=== PATIENT | male | born 1955 | race Caucasian/White ===

== ENCOUNTER 2019-01-11 04:15 | Inpatient (IN) | payer MEDICAID, OTHER ==
[2019-01-11] MEDS ORDERED: traZODone 50 MG TAB PO PRN (07:00)
[2019-01-11] MEDS ORDERED: MOM 30ML SUSPENSION UDC PO PRN (07:00)
[2019-01-11] MEDS ORDERED: MAALOX 30 ML SUSP *UDC PO PRN (07:00)
[2019-01-11] MEDS ORDERED: LORazepam 2 MG TAB PO PRN (07:15)
[2019-01-11 09:00] VITALS: BP 157/80
[2019-01-11] MEDS: NICOTINE 21MG/24HR 1 EA TRANSDERMAL TD SCH (09:00)
[2019-01-11] MEDS: ACETAMINOPHEN TAB 650MG DOSE (2X325MG) PO PRN (09:41)
[2019-01-11] MEDS: THIAMINE 100 MG TAB PO SCH ×2 (10:35→22:14)
[2019-01-11] MEDS: PALIPERIDONE 3 MG ER TAB (INVEGA) PO SCH ×2 (10:35→22:15)
[2019-01-11] MEDS: FOLIC ACID 1 MG TAB PO SCH (10:35)
[2019-01-11] MEDS: MULTIVITAMINS/MINERALS THERAP 1 TAB PO SCH (10:35)
[2019-01-11 11:51] VITALS: BP 142/84
--- NOTE | 2019-01-11 16:56 | HPEPDOC ---
General Date of Admission January 11, 2019 at 06:55 Chief Complaint The patient is a 63-year-old male admitted with a reason for visit of Unspecified Psychotic Disorder. History of Present Illness Patient is a 63-year-old male, past medical history significant for hypertension, schizophrenia, nicotine dependence, transferred from another hospital where he had presented via ambulance with a complaint of opening the letter from [employer] that had anthrax. Patient reported sudden nausea at time of opening the letter. He reports he developed sudden lightheadedness and a feeling of toxicity for which he had called 911. He also complained that the letter caused sudden memory loss. Home Medications No Active Prescriptions or Reported Meds Allergies Coded Allergies: Opioids - Morphine Analogues (Verified Adverse Reaction, Intermediate, LIGHTHEADED, 01/11/19) Past Medical History Medical History Hypertension Hyperlipidemia Arthritis Nicotine dependence Schizophrenia Surgical History Colonoscopy Cardiac Catheterization Family History Significant Family History: No pertinent family hx Social History * Smoker: current smoker, less than 1 pack/day Alcohol: occationally Drugs: denies A-FIB/CHADSVASC A-FIB History Current/History of A-Fib/PAF?: No Current Oral Anticoagulant The: No Review of Systems Other systems Review of systems not completed due to patient's mental status Physical Examination Other physical findings General: NAD. Skin: Warm, dry, intact. Cardiovascular: Regular rate and rhythm, no MRG, no jugular venous distention, no edema. Respiratory:CTAB, no accessory muscle use noted. Abdomen: Bowel sounds +, no tenderness, no distention Musculoskeletal: No joint deformities, Neurologic: CN 2-12 grossly intact, alert and oriented 3 Psychiatric: Flat affect Vital Signs Vital Signs Date Time Temp Pulse Resp B/P (MAP) Pulse Ox O2 Delivery O2 Flow Rate FiO2 01/11/19 11:51 87 142/84 01/11/19 09:00 98.8 16 01/11/19 08:00 97 Room Air Assessment/Plan Hypertension -Start lisinopril 10 mg daily -Blood pressure monitoring per unit protocol. -target systolic blood pressure systolic less than 140 -DVT prophylaxis -Patient is frequently ambulatory Nicotine dependence -Management by primary team Acute paranoia with psychosis -Management by primary team Plan / VTE VTE Prophylaxis Ordered?: No VTE Exclusion Pharmacological: At Low Risk for VTE DUYEN BOSS January 11, 2019 16:56
[2019-01-11] MEDS: LISINOPRIL 10 MG TAB PO SCH (17:11)
[2019-01-11 18:00] VITALS: BP 133/72
--- NOTE | 2019-01-11 18:32 | MHHPEPDOC ---
General Date Of Admission: January 11, 2019 Legal Status: 9.39 Chief Complaint Referred by [facility] for increasing psychosis. History of Present Illness HISTORY OF THE PRESENT ILLNESS: Patient is a 63 -year-old , male, who, as per ED report: "Reason for Referral Pt sent by [facility] ED for MHE, pt with apparent hx of Schizophrenia, has been exhibiting paranoid delusions earlier tonight. Chief Complaint Pt appears anxious, s/w guarded, is A&0x3, transferred from [facility] ED for MHE. PT admittedly called 911 himself last evening, admits he was drinking yesterday as well. Pt repoprts he called 911 after opening a letter at home and feeling like it had a "toxic effect" on him, pt insists there was something wrong with the letter and cause him to feel dizzy and weak, reports the leter was some kind of "medical advertisement". Pt., though guarded, admits to hx of Schizophrenia and has prior admissions in [place], but last admission was in "late 80's or early 90's", pt admits to poor memory recently, also admits to non-compliance with outpt psych tx or medications since he moved to [facility] in 2009, currently resides with his 2 sisters. Pt reports compliance with his PCP and medications, also had colonospcopy recently. Pt denies SI/HI, currently denies any AH/VH, denies drug use, admits to drinking "a few times a month", admits he had "about 10 beers yesterday". Pt remains anxious and guarded with poor eye contact, pressured speech. Per [place] documentation, ED Physician there spoke with pt.'s sister for corroborative info, she examined aforementioned letter that pt had incident with, letter appeared ordinary to her(Medicare notice?) and acknowledged that pt did indeed have prior psych hx and agreed that pt appeared to be decompensating. Pt continues to obsess about the letter, feels he was somehow physically affected by letter, appears paranoid, possible tactile/olfactory/gustatory hallucinations" Psychiatric Review of Systems Depression (2 or more weeks): insomnia/hypersomnia (insomnia "for a long time althought it has gotten better in the last few nights"), decreased energy, difficulty concentrating, psychomotor changes Rosemary (4 or more days of): denies Psychosis: denies PTSD: denies Anxiety: denies Anxiety/ 6 months or more of: restlessness, keyed up (about 3 weeks ago), easily fatigued, difficulty concentrating, muscle tension, sleep disturbance Past Psychiatric History Previous Psychiatric Diagnosis: He has a diagnosis but he can't remember what it is 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 Father ahd he says he of "natural causes" Psychiatric Disorders: No Addiction: No Suicide Attemps/Completions: No Addiction History nicotine (half pack/day), alcohol (2-3x/month) Social History Childhood: "It was OK", grew up with both parents, he had 2 sisters, they live in [place]. School was OK Abuse/Trauma: Denies Current Living Situation: He lives with his 2 sisters in [facility] Education: Employment: unemployed Social Support: His 2 sisters Legal: A long time ago, a misdemeanor, driving w/o a license Marital: Single, no children. Mental Status Examination General Appearance: unkempt, disheveled, ds/not appear stated age (looks older), hospital scubs/clothing Build: average Demeanor: mistrustful, guarded Eye Contact: intense Activity: slowed, anxious Behavior: resistant Speech: clear, slow, low in volume Mood: angry, irritable Affect: constricted, inappropriate, anxious, hostile Thought Process: other (patient is not very cooperative, he doesn't talk much, he is guarded) Thought Content (Delusions): denies SI, HI, AVH, paranoia (patient seems to be paranoid), delusions Thought Content (Other): guarded, internal-stimuli (patient seems to be responding to internal stimuli, he was seen making faces as if he would be annoyed at someone else in the room.) Thought Content (Aggressive): none reported Perception (Hallucinations): other (He denies having hallucinations but he seems to be responding to internal stimuli) Perception (Other): none reported Cognition (Impairment of): none reported Cognition(Intelligence Est.): average Oriented: Awake, Alert, Oriented times three Insight: poor Judgment: Poor Psychosis: Psychotic Perceptions Diagnoses 1. Unspecified psychotic disorder, r/o paranoid schizophrenia 2. alcohol use disorder Assessment The patient is extremely guarded, he looks at me with the corner of his eye, he seems angry and irritable. He has a h/o schizophrenia according to documentation sent by [facility] to the ED. At [facility] they obtained information from his sisters who reported that he has been non compliant with appointments or medications. He seems to be responding to internal stimuli Problem List Problems: (1) Schizophrenia Status: Chronic Response to Treatment: Uncontrolled Discussed With: Patient Problem Specific Plan: Monitor Clinically Initial Treatment Plan 1. Patient was admitted on a [9.39] status. 2. Complete history was obtained. 3. With patients permission, family will be contacted and database will be expa nded. 4. Patients medication regimen will be reviewed and changed accordingly. 5. Patient will be provided with protected environment. 6. Patient will be treated with individual, group, and milieu therapies. 7. Patient will receive supportive psych-education. 8. Discharge planning will commence immediately. 9. Outpatient follow-up treatment will be strongly recommended. 10. The initial treatment plan will focus initially on: * Psychosis * Risk for suicide. * Risk for harming other people * Substance abuse. ESTIMATED LENGTH OF STAY: 5-7 DAYS. TIME SPENT COUNSELING AND COORDINATING INITIAL CARE: 60 minutes. Vital Signs Vital Signs Date Time Temp Pulse Resp B/P (MAP) Pulse Ox O2 Delivery O2 Flow Rate FiO2 01/11/19 17:11 139/76 01/11/19 11:51 87 01/11/19 09:00 98.8 16 01/11/19 08:00 97 Room Air Medications No Active Prescriptions or Reported Meds Allergies Coded Allergies: Opioids - Morphine Analogues (Verified Adverse Reaction, Intermediate, LIGHTHEADED, 01/11/19) DUONG HANSON MD January 11, 2019 18:16
[2019-01-11] MEDS: BENZTROPINE 0.5 MG TAB PO SCH (22:15)
[2019-01-11 22:17] VITALS: BP 124/67
[2019-01-12 06:40] VITALS: BP 122/55
[2019-01-12 08:00] VITALS: BP 128/68
[2019-01-12] MEDS: MULTIVITAMINS/MINERALS THERAP 1 TAB PO SCH (08:30)
[2019-01-12] MEDS: NICOTINE 21MG/24HR 1 EA TRANSDERMAL TD SCH (08:30)
[2019-01-12] MEDS: BENZTROPINE 0.5 MG TAB PO SCH ×2 (08:31→20:13)
[2019-01-12] MEDS: PALIPERIDONE 3 MG ER TAB (INVEGA) PO SCH ×2 (08:31→20:13)
[2019-01-12] MEDS: LISINOPRIL 10 MG TAB PO SCH (08:31)
[2019-01-12] MEDS: THIAMINE 100 MG TAB PO SCH ×2 (08:31→20:13)
[2019-01-12] MEDS: FOLIC ACID 1 MG TAB PO SCH (08:31)
[2019-01-12 17:25] VITALS: BP 162/91
[2019-01-12 18:00] VITALS: BP 140/77
--- NOTE | 2019-01-12 19:25 | MHIPNPDOC ---
[facility] Progress Note Progress Note DATE OF SERVICE: 01/12/19 HISTORY: Patient is a 63 -year-old , male, who, as per ED report: Pt sent by [facility] ED for MHE, pt with apparent hx of Schizophrenia, has been exhibiting paranoid delusions earlier tonight. Chief Complaint Pt appears anxious, s/w guarded, is A&0x3, transferred from [facility] ED for MHE. PT admittedly called 911 himself last evening, admits he was drinking yesterday as well. Pt repoprts he called 911 after opening a letter at home and feeling like it had a "toxic effect" on him, pt insists there was something wrong with the letter and cause him to feel dizzy and weak, reports the leter was some kind of "medical advertisement". Pt., though guarded, admits to hx of Schizophrenia and has prior admissions in [place], but last admission was in "late 80's or early 90's", pt admits to poor memory recently, also admits to non-compliance with outpt psych tx or medications since he moved to [facility] in 2009, currently resides with his 2 sisters. Pt reports compliance with his PCP and medications, also had colonospcopy recently. Pt denies SI/HI, currently denies any AH/VH, denies drug use, admits to drinking "a few times a month", admits he had "about 10 beers yesterday". Pt remains anxious and guarded with poor eye contact, pressured speech. Per [place] documentation, ED Physician there spoke with pt.'s sister for corroborative info, she examined aforementioned letter that pt had incident with, letter appeared ordinary to her(Medicare notice?) and acknowledged that pt did indeed have prior psych hx and agreed that pt appeared to be decompensating. Pt continues to obsess about the letter, feels he was somehow physically affected by letter, appears paranoid, possible tactile/olfactory/gustatory hallucinations" VITAL SIGNS: See below. NEW TEST RESULTS: see below CURRENT MEDICATIONS: See below. MENTAL STATUS EXAMINATION: General Appearance: unkempt, disheveled, ds/not appear stated age (looks older), hospital scubs/clothing Build: average Demeanor: mistrustful, guarded Eye Contact: intense, looks at me with the corner of his eye Activity: slowed, anxious, guarded, with his arms crossed in front of his chest Behavior: seems paranoid, suspicious Speech: clear, slow, low in volume Mood: less irritable than yesterday Affect: constricted, inappropriate, anxious, hostile Thought Process: linear but illogical, not coherent Thought Content (Delusions): denies SI, HI, AVH, paranoia (patient seems to be paranoid), delusions ( he firmly believes an envelope he received was sent with anthrax in it, he thinks someone is out to get him) Thought Content (Other): guarded, internal-stimuli Thought Content (Aggressive): none reported Perception (Hallucinations): other (He denies having hallucinations but he seems to be responding to internal stimuli) Perception (Other): none reported Cognition (Impairment of): none reported Cognition(Intelligence Est.): average Oriented: Awake, Alert, Oriented times three Insight: poor Judgment: Poor Psychosis: Psychotic Perceptions Diagnoses 1. Unspecified psychotic disorder, r/o paranoid schizophrenia 2. alcohol use disorder ASSESSMENT: The patient is convinced that he received a letter and he believes the envelope had anthrax in it. He says he feels a little bit better with Invega and he thinks he is going to keep taking it but he is not going to quit dri nking. Discussed the drinking problem as a big obstacle for his stabilization, because if he is drunk, he won't take his medications or go to his appointments but at this point his mind is not clear enough to understand how important is to keep sober and continue his treatment. MANAGEMENT PLAN: Will continue with current treatment plan TIME SPENT: 20 minutes. Vital Signs Vital Signs Date Time Temp Pulse Resp B/P (MAP) Pulse Ox O2 Delivery O2 Flow Rate FiO2 01/12/19 17:25 77 162/91 01/12/19 06:40 97.4 16 01/11/19 08:00 97 Room Air Current Medications Current Medications Acetaminophen (Tylenol Tab) 650 mg Q6HP PRN PO HEADACHE or DISCOMFORT Last a dministered on 01/11/19at 09:41; Start 01/11/19 at 07:00 Al Hydrox/Mg Hydrox/Simethicone (Mylanta) 30 ml Q4HP PRN PO HEARTBURN/IND IGESTION; Start 01/11/19 at 07:00 Benztropine Mesylate (Cogentin) 0.5 mg BID PO Last administered on 01/12/19 08:31; Start 01/11/19 at 21:00 Folic Acid (Folic Acid) 1 mg DAILY PO Last administered on 01/12/19 08:31; Start 01/11/19 at 09:00 Home Med (Med Rec Complete!) ASDIRECTED XX ; Start 01/11/19 at 08:45; Stop 01/11/19 at 08:45; Status DC Lisinopril (Prinivil) 10 mg DAILY PO Last administered on 01/12/19 08:31; Start 01/11/19 at 09:00 Lorazepam (Ativan) 2 mg ASDIRECTED PRN PO SEE PROTOCOL; Start 01/11/19 at 07:15 Magnesium Hydroxide (Milk Of Magnesia) 30 ml DAILYPRN PRN PO CONSTIPATION; Start 01/11/19 at 07:00 Multivitamins (Theragram-M) 1 tab DAILY PO Last administered on 01/12/19 08:30; Start 01/11/19 at 09:00 Nicotine (Nicoderm Cq 21mg) 1 patch DAILY TD Last administered on 01/12/19 08:30; Start 01/11/19 at 09:00 Paliperidone (Invega) 3 mg BID PO Last administered on 01/12/19 08:31; Start 01/11/19 at 09:00 Thiamine HCl (Thiamine HCl) 100 mg BID PO Last administered on 01/12/19 08:31; Start 01/11/19 at 09:00; Stop 01/14/19 at 08:59 Trazodone HCl (Desyrel) 50 mg QHSP PRN PO INSOMNIA; Start 01/11/19 at 07:00 Allergies Coded Allergies: Opioids - Morphine Analogues (Verified Adverse Reaction, Intermediate, LIGHTHEADED, 01/11/19) DUONG HANSON MD January 12, 2019 19:13
[2019-01-12 21:00] VITALS: BP 136/70
[2019-01-13 06:38] VITALS: BP 106/62
[2019-01-13] MEDS: FOLIC ACID 1 MG TAB PO SCH (08:11)
[2019-01-13] MEDS: NICOTINE 21MG/24HR 1 EA TRANSDERMAL TD SCH (08:11)
[2019-01-13] MEDS: THIAMINE 100 MG TAB PO SCH ×2 (08:11→20:01)
[2019-01-13] MEDS: PALIPERIDONE 3 MG ER TAB (INVEGA) PO SCH ×2 (08:11→20:01)
[2019-01-13] MEDS: MULTIVITAMINS/MINERALS THERAP 1 TAB PO SCH (08:11)
[2019-01-13] MEDS: BENZTROPINE 0.5 MG TAB PO SCH ×2 (08:11→20:01)
[2019-01-13] MEDS: LISINOPRIL 10 MG TAB PO SCH (08:11)
--- NOTE | 2019-01-13 17:57 | REP ---
CT brain without contrast: History: Altered mental status. Comparison study December 03, [address] findings: Preliminary digital distillation operator radiograph is unremarkable. Bone window settings demonstrate an intact bony calvarium. There is mucosal thickening moderate in degree affecting the ethmoid sinuses bilaterally. Mild mucosal changes are seen in the sphenoid sinuses. No intraorbital abnormality is seen. There is vascular calcification in the carotid arteries bilaterally. There is no evidence of infarct or intracranial hemorrhage. No mass or midline shift is seen. No extra-axial fluid collection is observed. Impression: Vascular calcification. Minimal generalized volume loss. No acute intracranial abnormality. There is evidence of bilateral ethmoid mucosal sinusitis. Electronically Signed by Francisco George MD 01/14/2019 10:28 A
[2019-01-13 18:20] VITALS: BP 119/69
--- NOTE | 2019-01-13 20:31 | MHIPNPDOC ---
[facility] Progress Note Progress Note DATE OF SERVICE: 01/13/19 HISTORY: Patient is a 63 -year-old , male, who, as per ED report: Pt sent by [facility] ED for MHE, pt with apparent hx of Schizophrenia, has been exhibiting paranoid delusions earlier tonight. Chief Complaint Pt appears anxious, s/w guarded, is A&0x3, transferred from [facility] ED for MHE. PT admittedly called 911 himself last evening, admits he was drinking yesterday as well. Pt repoprts he called 911 after opening a letter at home and feeling like it had a "toxic effect" on him, pt insists there was something wrong with the letter and cause him to feel dizzy and weak, reports the leter was some kind of "medical advertisement". Pt., though guarded, admits to hx of Schizophrenia and has prior admissions in [place], but last admission was in "late 80's or early 90's", pt admits to poor memory recently, also admits to non-compliance with outpt psych tx or medications [facility], currently resides with his 2 sisters. Pt reports compliance with his PCP and medications, also had colonospcopy recently. Pt denies SI/HI, currently denies any AH/VH, denies drug use, admits to drinking "a few times a month", admits he had "about 10 beers yesterday". Pt remains anxious and guarded with poor eye contact, pressured speech. Per [place] documentation, ED Physician there spoke with pt.'s sister for corroborative info, she examined aforementioned letter that pt had incident with, letter appeared ordinary to her(Medicare notice?) and acknowledged that pt did indeed have prior psych hx and agreed that pt appeared to be decompensating. Pt continues to obsess about the letter, feels he was somehow physically affected by letter, appears paranoid, possible tactile/olfactory/gustatory hallucinations" VITAL SIGNS: See below. NEW TEST RESULTS: see below CURRENT MEDICATIONS: See below. MENTAL STATUS EXAMINATION: General Appearance: good hygiene and grooming, , ds/not appear stated age (looks older), hospital scubs/clothing Build: average Demeanor: less guarded today Eye Contact: avoidant at times Activity: slowed, calm Behavior: less paranoid Speech: clear, slow, low in volume Mood: less irritable Affect: constricted, anxious Thought Process: linear Thought Content (Delusions): denies SI, HI, AVH, he still believes that he received an envelope that contained anthrax. He is still paranoid but to a lesser extent. He denies AV hallucinations and doesn't seem to be responding to internal stimuli Thought Content (Other): delusional ( envelope, according to him contained anthrax.) Thought Content (Aggressive): none reported Perception (Hallucinations): none reported Perception (Other): none reported Cognition (Impairment of): none reported Cognition(Intelligence Est.): average Oriented: Awake, Alert, Oriented times three Insight: poor Judgment: Poor Psychosis: Psychotic Perceptions Diagnoses 1. Unspecified psychotic disorder, r/o paranoid schizophrenia 2. alcohol use disorder ASSESSMENT: The patient is looking better and he says that he feels better. Says he is sleeping well, his appetite is good, feels calmer and still believes that he received a letter that was poisoned with anthrax. He says that he had a CT scan done this time when he came to the ED but there's no CT from this admission. There's an MRI from 2014. This information writer ordered a CT scan today and it shows this results: "Vascular calcification. Minimal generalized volume loss. No acute intracranial abnormality. There is evidence of bilateral ethmoid mucosal sinusitis." The patient shows good response to medication, he has not developed adverse reaction or side effects. MANAGEMENT PLAN: Will continue with current treatment plan TIME SPENT: 20 minutes. Vital Signs Vital Signs Date Time Temp Pulse Resp B/P (MAP) Pulse Ox O2 Delivery O2 Flow Rate FiO2 01/13/19 18:20 98.2 77 16 119/69 (86) 01/11/19 08:00 97 Room Air Current Medications Current Medications Acetaminophen (Tylenol Tab) 650 mg Q6HP PRN PO HEADACHE or DISCOMFORT Last administered on 01/11/19at 09:41; Start 01/11/19 at 07:00 Al Hydrox/Mg Hydrox/Simethicone (Mylanta) 30 ml Q4HP PRN PO HEARTBURN/INDIGESTION; Start 01/11/19 at 07:00 Benztropine Mesylate (Cogentin) 0.5 mg BID PO Last administered on 01/13/19at 20:01; Start 01/11/19 at 21:00 Folic Acid (Folic Acid) 1 mg DAILY PO Last administered on 01/13/19at 08:11; Start 01/11/19 at 09:00 Home Med (Med Rec Complete!) ASDIRECTED XX ; Start 01/11/19 at 08:45; Stop 01/11/19 at 08:45; Status DC Lisinopril (Prinivil) 10 mg DAILY PO Last administered on 01/13/19at 08:11; Start 01/11/19 at 09:00 Lorazepam (Ativan) 2 mg ASDIRECTED PRN PO SEE PROTOCOL; Start 01/11/19 at 07:15 Magnesium Hydroxide (Milk Of Magnesia) 30 ml DAILYPRN PRN PO CONSTIPATION; Start 01/11/19 at 07:00 Multivitamins (Theragram-M) 1 tab DAILY PO Last administered on 01/13/19at 08:11; Start 01/11/19 at 09:00 Nicotine (Nicoderm Cq 21mg) 1 patch DAILY TD Last administered on 01/13/19at 0 8:11; Start 01/11/19 at 09:00 Paliperidone (Invega) 3 mg BID PO Last administered on 01/13/19at 20:01; Start 01/11/19 at 09:00 Thiamine HCl (Thiamine HCl) 100 mg BID PO Last administered on 01/13/19 20:01; Start 01/11/19 at 09:00; Stop 01/14/19 at 08:59 Trazodone HCl (Desyrel) 50 mg QHSP PRN PO INSOMNIA; Start 01/11/19 at 07:00 Allergies Coded Allergies: Opioids - Morphine Analogues (Verified Adverse Reaction, Intermediate, LIGHTHEADED, 01/11/19) DUONG HANSON MD January 13, 2019 20:31
[2019-01-14 07:00] VITALS: BP 119/72
[2019-01-14] MEDS: NICOTINE 21MG/24HR 1 EA TRANSDERMAL TD SCH (08:25)
[2019-01-14] MEDS: BENZTROPINE 0.5 MG TAB PO SCH ×2 (08:25→20:12)
[2019-01-14] MEDS: FOLIC ACID 1 MG TAB PO SCH (08:25)
[2019-01-14] MEDS: MULTIVITAMINS/MINERALS THERAP 1 TAB PO SCH (08:25)
[2019-01-14] MEDS: LISINOPRIL 10 MG TAB PO SCH (08:25)
[2019-01-14] MEDS: PALIPERIDONE 3 MG ER TAB (INVEGA) PO SCH ×2 (08:25→20:12)
[2019-01-14 09:00] VITALS: BP 119/72
[2019-01-14 18:00] VITALS: BP 112/58
[2019-01-14 18:30] VITALS: BP 112/58
--- NOTE | 2019-01-14 20:54 | MHIPNPDOC ---
[facility] Progress Note Progress Note DATE OF SERVICE: 01/14/19 HISTORY: Patient is a 63 -year-old , male, who, as per ED report: Pt sent by [facility] ED for MHE, pt with apparent hx of Schizophrenia, has been exhibiting paranoid delusions earlier tonight. Chief Complaint Pt appears anxious, s/w guarded, is A&0x3, transferred from [facility] ED for MHE. PT admittedly called 911 himself last evening, admits he was drinking yesterday as well. Pt repoprts he called 911 after opening a letter at home and feeling like it had a "toxic effect" on him, pt insists there was something wrong with the letter and cause him to feel dizzy and weak, reports the leter was some kind of "medical advertisement". Pt., though guarded, admits to hx of Schizophrenia and has prior admissions in [place], but last admission was in "late 80's or early 90's", pt admits to poor memory recently, also admits to non-compliance with outpt psych tx or medications since he moved to [facility] in 2009, currently resides with his 2 sisters. Pt reports compliance with his PCP and medications, also had colonospcopy recently. Pt denies SI/HI, currently denies any AH/VH, denies drug use, admits to drinking "a few times a month", admits he had "about 10 beers yesterday". Pt remains anxious and guarded with poor eye contact, pressured speech. Per [place] documentation, ED Physician there spoke with pt.'s sister for corroborative info, she examined aforementioned letter that pt had incident with, letter appeared ordinary to her(Medicare notice?) and acknowledged that pt did indeed have prior psych hx and agreed that pt appeared to be decompensating. Pt continues to obsess about the letter, feels he was somehow physically affected by letter, appears paranoid, possible tactile/olfactory/gustatory hallucinations" VITAL SIGNS: See below. NEW TEST RESULTS: see below CURRENT MEDICATIONS: See below. MENTAL STATUS EXAMINATION: General Appearance: good hygiene and grooming, , ds/not appear stated age (looks older), hospital scubs/clothing Build: average Demeanor: less guarded today Eye Contact: avoidant at times Activity: slowed, calm Behavior: less paranoid Speech: clear, slow, low in volume Mood: less irritable Affect: constricted, anxious Thought Process: linear Thought Content (Delusions): denies SI, HI, AVH, he doesn't seem to be responding to internal stimuli Thought Content (Other): his delusions about receiving an envelope contaminated with anthrax are fading away Thought Content (Aggressive): none reported Perception (Hallucinations): none reported Perception (Other): none reported Cognition (Impairment of): none reported Cognition(Intelligence Est.): average Oriented: Awake, Alert, Oriented times three Insight: poor Judgment: Poor Psychosis: Psychotic Perceptions Diagnoses 1. Unspecified psychotic disorder, r/o paranoid schizophrenia 2. alcohol use disorder ASSESSMENT: The patient is improving. Today he says that he is begining to realize that the envelope didn't contain any anthrax because this is not the first time he has that kind of thoughts but the difference is that in the past he had learned how to block those thoughs and not pay attention to them. He says he is having a good response to medications and denies side effects. He says that he doesn't think liquor played a rol in his decompensation. MANAGEMENT PLAN: Will continue with current treatment plan TIME SPENT: 20 minutes. Vital Signs Vital Signs Date Time Temp Pulse Resp B/P (MAP) Pulse Ox O2 Delivery O2 Flow Rate FiO2 01/14/19 18:30 83 112/58 01/14/19 18:00 98.7 14 01/11/19 08:00 97 Room Air Current Medications Current Medications Acetaminophen (Tylenol Tab) 650 mg Q6HP PRN PO HEADACHE or DISCOMFORT Last administered on 01/11/19at 09:41; Start 01/11/19 at 07:00 Al Hydrox/Mg Hydrox/Simethicone (Mylanta) 30 ml Q4HP PRN PO HEARTBURN/INDIGESTION; Start 01/11/19 at 07:00 Benztropine Mesylate (Cogentin) 0.5 mg BID PO Last administered on 01/14/19at 20:12; Start 01/11/19 at 21:00 Folic Acid (Folic Acid) 1 mg DAILY PO Last administered on 01/14/19at 08:25; Start 01/11/19 at 09:00 Home Med (Med Rec Complete!) ASDIRECTED XX ; Start 01/11/19 at 08:45; Stop 01/11/19 at 08:45; Status DC Lisinopril (Prinivil) 10 mg DAILY PO Last administered on 01/14/19 08:25; Start 01/11/19 at 09:00 Lorazepam (Ativan) 2 mg ASDIRECTED PRN PO SEE PROTOCOL; Start 01/11/19 at 07:15 Magnesium Hydroxide (Milk Of Magnesia) 30 ml DAILYPRN PRN PO CONSTIPATION; Start 01/11/19 at 07:00 Multivitamins (Theragram-M) 1 tab DAILY PO Last administered on 01/14/19at 08:25; Start 01/11/19 at 09:00 Nicotine (Nicoderm Cq 21mg) 1 patch DAILY TD Last administered on 01/14/19 08:25; Start 01/11/19 at 09:00 Paliperidone (Invega) 3 mg BID PO Last administered on 01/14/19at 20:12; Start 01/11/19 at 09:00 Thiamine HCl (Thiamine HCl) 100 mg BID PO Last administered on 01/13/19at 20:01; Start 01/11/19 at 09:00; Stop 01/14/19 at 08:59; Status DC Trazodone HCl (Desyrel) 50 mg QHSP PRN PO INSOMNIA; Start 01/11/19 at 07:00 Allergies Coded Allergies: Opioids - Morphine Analogues (Verified Adverse Reaction, Intermediate, LIGHTHEADED, 01/11/19) DUONG HANSON MD January 14, 2019 20:54
[2019-01-15 07:21] VITALS: BP 126/64
[2019-01-15] MEDS: FOLIC ACID 1 MG TAB PO SCH (08:08)
[2019-01-15] MEDS: MULTIVITAMINS/MINERALS THERAP 1 TAB PO SCH (08:08)
[2019-01-15] MEDS: NICOTINE 21MG/24HR 1 EA TRANSDERMAL TD SCH (08:08)
[2019-01-15] MEDS: BENZTROPINE 0.5 MG TAB PO SCH ×2 (08:08→20:19)
[2019-01-15] MEDS: PALIPERIDONE 3 MG ER TAB (INVEGA) PO SCH ×2 (08:08→20:19)
[2019-01-15] MEDS: LISINOPRIL 10 MG TAB PO SCH (08:09)
[2019-01-15 10:23] VITALS: BP 119/70
[2019-01-15 16:14] VITALS: BP 115/74
[2019-01-15 18:42] VITALS: BP 115/74
--- NOTE | 2019-01-15 19:44 | MHIPNPDOC ---
[facility] Progress Note Progress Note DATE OF SERVICE: 01/15/19 HISTORY: Patient is a 63 -year-old , male, who, as per ED report: Pt sent by [facility] ED for MHE, pt with apparent hx of Schizophrenia, has been exhibiting paranoid delusions earlier tonight. Chief Complaint Pt appears anxious, s/w guarded, is A&0x3, transferred from [facility] ED for MHE. PT admittedly called 911 himself last evening, admits he was drinking yesterday as well. Pt repoprts he called 911 after opening a letter at home and feeling like it had a "toxic effect" on him, pt insists there was something wrong with the letter and cause him to feel dizzy and weak, reports the leter was some kind of "medical advertisement". Pt., though guarded, admits to hx of Schizophrenia and has prior admissions in [place], but last admission was in "late 80's or early 90's", pt admits to poor memory recently, also admits to non-compliance with outpt psych tx or medications since he moved to [facility] in 2009, currently resides with his 2 sisters. Pt reports compliance with his PCP and medications, also had colonospcopy recently. Pt denies SI/HI, currently denies any AH/VH, denies drug use, admits to drinking "a few times a month", admits he had "about 10 beers yesterday". Pt remains anxious and guarded with poor eye contact, pressured speech. Per [place] documentation, ED Physician there spoke with pt.'s sister for corroborative info, she examined aforementioned letter that pt had incident with, letter appeared ordinary to her(Medicare notice?) and acknowledged that pt did indeed have prior psych hx and agreed that pt appeared to be decompensating. Pt continues to obsess about the letter, feels he was somehow physically affected by letter, appears paranoid, possible tactile/olfactory/gustatory hallucinations" VITAL SIGNS: See below. NEW TEST RESULTS: see below CURRENT MEDICATIONS: See below. MENTAL STATUS EXAMINATION: General Appearance: good hygiene and grooming, , ds/not appear stated age (looks older), hospital scubs/clothing Build: average Demeanor: less guarded today Eye Contact: avoidant at times Activity: slowed, calm Behavior: he is still guarded and a little bit paranoid, although it is less than before. Speech: clear, slow, low in volume Mood: less irritable Affect: constricted, anxious Thought Process: linear Thought Content (Delusions): denies SI, HI, AVH. He doesn't seem to be responding to internal stimuli but he still looks a little paranoid Thought Content (Other): his delusions about receiving an envelope contaminated with anthrax are fading away Thought Content (Aggressive): none reported Perception (Hallucinations): none reported Perception (Other): none reported Cognition (Impairment of): none reported Cognition(Intelligence Est.): average Oriented: Awake, Alert, Oriented times three Insight: poor Judgment: Poor Psychosis: Psychotic Perceptions Diagnoses 1. Unspecified psychotic disorder, r/o paranoid schizophrenia 2. alcohol use disorder ASSESSMENT: The patient says he wouldn't pay attention to his thoughts if he would ever think once again that he has received letters that contain anthrax, like he has done before in his life. He says that he is not having auditory or visual hallucinations today but he still looks a little guarded, a little paranoid, although I would say it has decreased significantly since he was admitted, he is still paranoid and at times he seems to minimize his symptoms, especially when it comes to his alcohol abuse and how this contributes to his decompensation. MANAGEMENT PLAN: Will continue with current treatment plan TIME SPENT: 20 minutes. Vital Signs Vital Signs Date Time Temp Pulse Resp B/P (MAP) Pulse Ox O2 Delivery O2 Flow Rate FiO2 01/15/19 18:42 98.8 86 16 115/74 (88) 01/15/19 14:25 Room Air 01/15/19 10:23 97 Current Medications Current Medications Acetaminophen (Tylenol Tab) 650 mg Q6HP PRN PO HEADACHE or DISCOMFORT Last administered on 01/11/19at 09:41; Start 01/11/19 at 07:00 Al Hydrox/Mg Hydrox/Simethicone (Mylanta) 30 ml Q4HP PRN PO HEARTBURN/INDIGESTION; Start 01/11/19 at 07:00 Benztropine Mesylate (Cogentin) 0.5 mg BID PO Last administered on 01/15/19at 08:08; Start 01/11/19 at 21:00 Folic Acid (Folic Acid) 1 mg DAILY PO Last administered on 01/15/19at 08:08; Start 01/11/19 at 09:00 Home Med (Med Rec Complete!) ASDIRECTED XX ; Start 01/11/19 at 08:45; Stop 01/11/19 at 08:45; Status DC Lisinopril (Prinivil) 10 mg DAILY PO Last administered on 01/15/19 08:09; Start 01/11/19 at 09:00 Lorazepam (Ativan) 2 mg ASDIRECTED PRN PO SEE PROTOCOL; Start 01/11/19 at 07:15 Magnesium Hydroxide (Milk Of Magnesia) 30 ml DAILYPRN PRN PO CONSTIPATION; Start 01/11/19 at 07:00 Multivitamins (Theragram-M) 1 tab DAILY PO Last administered on 01/15/19 08:08; Start 01/11/19 at 09:00 Nicotine (Nicoderm Cq 21mg) 1 patch DAILY TD Last administered on 01/15/19 08:08; Start 01/11/19 at 09:00 Paliperidone (Invega) 3 mg BID PO Last administered on 01/15/19at 08:08; Start 01/11/19 at 09:00 Thiamine HCl (Thiamine HCl) 100 mg BID PO Last administered on 01/13/19at 20:01; Start 01/11/19 at 09:00; Stop 01/14/19 at 08:59; Status DC Trazodone HCl (Desyrel) 50 mg QHSP PRN PO INSOMNIA; Start 01/11/19 at 07:00 Allergies Coded Allergies: Opioids - Morphine Analogues (Verified Adverse Reaction, Intermediate, LIGHTHEADED, 01/11/19) DUONG HANSON MD January 15, 2019 19:44
[2019-01-15] MEDS: ACETAMINOPHEN TAB 650MG DOSE (2X325MG) PO PRN (19:47)
[2019-01-16 06:19] VITALS: BP 128/70
[2019-01-16] MEDS: PALIPERIDONE 3 MG ER TAB (INVEGA) PO SCH (08:43)
[2019-01-16] MEDS: BENZTROPINE 0.5 MG TAB PO SCH ×2 (08:43→20:04)
[2019-01-16] MEDS: LISINOPRIL 10 MG TAB PO SCH (08:43)
[2019-01-16] MEDS: MULTIVITAMINS/MINERALS THERAP 1 TAB PO SCH (08:43)
[2019-01-16] MEDS: NICOTINE 21MG/24HR 1 EA TRANSDERMAL TD SCH (08:43)
[2019-01-16] MEDS: FOLIC ACID 1 MG TAB PO SCH (08:43)
[2019-01-16] MEDS ORDERED: PALIPERIDONE PALMITATE 234MG/1.5ML INJ (INVEGA)(J2426)(FREE PSY INPT ONLY) IM ONE (13:00)
--- NOTE | 2019-01-16 16:19 | MHIPNPDOC ---
[facility] Progress Note Progress Note DATE OF SERVICE: 01/16/19 HISTORY: Patient is a 63 -year-old , male, who, as per ED report: Pt sent by [facility] ED for MHE, pt with apparent hx of Schizophrenia, has been exhibiting paranoid delusions earlier tonight. Chief Complaint Pt appears anxious, s/w guarded, is A&0x3, transferred from [facility] ED for MHE. PT admittedly called 911 himself last evening, admits he was drinking yesterday as well. Pt repoprts he called 911 after opening a letter at home and feeling like it had a "toxic effect" on him, pt insists there was something wrong with the letter and cause him to feel dizzy and weak, reports the leter was some kind of "medical advertisement". Pt., though guarded, admits to hx of Schizophrenia and has prior admissions in [place], but last admission was in "late 80's or early 90's", pt admits to poor memory recently, also admits to non-compliance with outpt psych tx or medications since he moved to [facility] in 2009, currently resides with his 2 sisters. Pt reports compliance with his PCP and medications, also had colonospcopy recently. Pt denies SI/HI, currently denies any AH/VH, denies drug use, admits to drinking "a few times a month", admits he had "about 10 beers yesterday". Pt remains anxious and guarded with poor eye contact, pressured speech. Per [place] documentation, ED Physician there spoke with pt.'s sister for corroborative info, she examined aforementioned letter that pt had incident with, letter appeared ordinary to her(Medicare notice?) and acknowledged that pt did indeed have prior psych hx and agreed that pt appeared to be decompensating. Pt continues to obsess about the letter, feels he was somehow physically affected by letter, appears paranoid, possible tactile/olfactory/gustatory hallucinations" VITAL SIGNS: See below. NEW TEST RESULTS: see below CURRENT MEDICATIONS: See below. MENTAL STATUS EXAMINATION: General Appearance: good hygiene and grooming, , ds/not appear stated age (looks older), hospital scubs/clothing Build: average Demeanor: less guarded today Eye Contact: avoidant Activity: slowed, calm Behavior: cooperative, less guarded, less paranoid Speech: clear, slow, low in volume Mood: less irritable Affect: constricted, less anxious Thought Process: linear Thought Content (Delusions): denies SI, HI, AVH. He denies paranoid, grandiose and/or bizarre delusions Thought Content (Other): please, read above Thought Content (Aggressive): none reported Perception (Hallucinations): none reported Perception (Other): none reported Cognition (Impairment of): none reported Cognition(Intelligence Est.): average Oriented: Awake, Alert, Oriented times three Insight: poor Judgment: Poor Psychosis: denies Diagnoses 1. Unspecified psychotic disorder, r/o paranoid schizophrenia 2. alcohol use disorder ASSESSMENT: The patient is not willing to acknowledge that he has an alcohol abuse problem but he says that he has not experienced auditory/visual hallucinations during the last 24 hours and he says he has not had more delusional thoughts about anthrax. He agreed to have his Invega sustenna 234 mgs IM [facility] today and wants to receive it monthly. Will make arrangements for patient to be discharged and receive proper f/u. He is not willing to go to Rehab Programs for alcohol abuse, he doesn't see it a s a problem MANAGEMENT PLAN: Invega Sustenna 234 mgs IM once today. TIME SPENT: 20 minutes. Vital Signs Vital Signs Date Time Temp Pulse Resp B/P (MAP) Pulse Ox O2 Delivery O2 Flow Rate FiO2 01/16/19 09:33 Room Air 01/16/19 08:43 128/70 01/16/19 06:19 98.5 78 16 01/15/19 10:23 97 Current Medications Current Medications Acetaminophen (Tylenol Tab) 650 mg Q6HP PRN PO HEADACHE or DISCOMFORT Last administered on 01/15/19at 19:47; Start 01/11/19 at 07:00 Al Hydrox/Mg Hydrox/Simethicone (Mylanta) 30 ml Q4HP PRN PO HEARTBURN/INDIGESTION; Start 01/11/19 at 07:00 Benztropine Mesylate (Cogentin) 0.5 mg BID PO Last administered on 01/16/19at 08:43; Start 01/11/19 at 21:00 Folic Acid (Folic Acid) 1 mg DAILY PO Last administered on 01/16/19at 08:43; Start 01/11/19 at 09:00 Home Med (Med Rec Complete!) ASDIRECTED XX ; Start 01/11/19 at 08:45; Stop 01/11/19 at 08:45; Status DC Lisinopril (Prinivil) 10 mg DAILY PO Last administered on 01/16/19at 08:43; Start 01/11/19 at 09:00 Lorazepam (Ativan) 2 mg ASDIRECTED PRN PO SEE PROTOCOL; Start 01/11/19 at 07:15 Magnesium Hydroxide (Milk Of Magnesia) 30 ml DAILYPRN PRN PO CONSTIPATION; Start 01/11/19 at 07:00 Multivitamins (Theragram-M) 1 tab DAILY PO Last administered on 01/16/19at 08:43; Start 01/11/19 at 09:00 Nicotine (Nicoderm Cq 21mg) 1 patch DAILY TD Last administered on 01/16/19at 08:43; Start 01/11/19 at 09:00 Paliperidone (Invega) 3 mg BID PO Last administered on 01/16/19at 08:43; Start 01/11/19 at 09:00 Quetiapine Fumarate (SEROquel) 50 mg QHS PO ; Start 01/16/19 at 21:00 Thiamine HCl (Thiamine HCl) 100 mg BID PO Last administered on 01/13/19at 20:01; Start 01/11/19 at 09:00; Stop 01/14/19 at 08:59; Status DC Trazodone HCl (Desyrel) 50 mg QHSP PRN PO INSOMNIA; Start 01/11/19 at 07:00; Status Cancel Allergies Coded Allergies: Opioids - Morphine Analogues (Verified Adverse Reaction, Intermediate, LIGHTHEADED, 01/11/19) DUONG HANSON MD January 16, 2019 16:19
[2019-01-16 18:00] VITALS: BP 120/66
[2019-01-16] MEDS ORDERED: QUEtiapine FUMARATE 50 MG TAB PO SCH (21:00)
[2019-01-16] MEDS ORDERED: PALIPERIDONE 3 MG ER TAB (INVEGA) PO SCH (21:00)
[2019-01-17 06:46] VITALS: BP 100/57
[2019-01-17 07:14] LABS: ALBUMIN 3.8 GM/DL (3.2-5.2); ALT/SGPT 29 U/L (12-78); BILIRUBIN,TOTAL 0.3 MG/DL (0.2-1.0); BLOOD UREA NITROGEN 19 MG/DL (7-18); CALCIUM LEVEL 8.9 MG/DL (8.8-10.2); CARBON DIOXIDE LEVEL 26 MEQ/L (21-32); CHLORIDE LEVEL 107 MEQ/L (98-107); CHOLESTEROL LEVEL 227 MG/DL (<200); CHOLESTEROL RISK RATIO 6.485 (<5); CREATININE FOR GFR 1.08 MG/DL (0.70-1.30); GLOMERULAR FILTRATION RATE > 60.0 (>49); GLUCOSE, FASTING 100 MG/DL (70-100); HDL CHOLESTEROL 35 MG/DL (>40); NON-HDL-C 192 MG/DL; POTASSIUM SERUM 4.2 MEQ/L (3.5-5.1); SODIUM LEVEL 140 MEQ/L (136-145); TOTAL PROTEIN 6.5 GM/DL (6.4-8.2); TRIGLYCERIDES LEVEL 537 MG/DL (<150)
[2019-01-17] MEDS: MULTIVITAMINS/MINERALS THERAP 1 TAB PO SCH (08:04)
[2019-01-17 08:05] VITALS: BP 126/73
[2019-01-17] MEDS: FOLIC ACID 1 MG TAB PO SCH (08:05)
[2019-01-17] MEDS: NICOTINE 21MG/24HR 1 EA TRANSDERMAL TD SCH (08:05)
[2019-01-17] MEDS: LISINOPRIL 10 MG TAB PO SCH (08:05)
[2019-01-17] MEDS: BENZTROPINE 0.5 MG TAB PO SCH (08:05)
[2019-01-17] MEDS ORDERED: QUEtiapine FUMARATE 50 MG TAB PO SCH (09:00)
[2019-01-17] MEDS ORDERED: BENZ0.5T PO (10:46)
[2019-01-17] MEDS ORDERED: LISI10TA4 PO (10:46)
[2019-01-17] MEDS ORDERED: FOLI1TAB11 PO (10:46)
[2019-01-17] MEDS ORDERED: QUET5TAB PO ×2 (10:46)
[2019-01-17] MEDS ORDERED: NICO21PAT TD (10:46)
[2019-01-17] MEDS ORDERED: VITMTA PO (10:46)
[2019-01-17] MEDS ORDERED: INVE156I IM (10:46)
--- NOTE | 2019-01-21 13:58 | MHDSPDOC ---
[facility] Discharge Summary Discharge Summary DATE OF ADMISSION: January 11, 2019 at 06:55 DATE OF DISCHARGE: January 17, 2019 at 14:07 DISCHARGE DIAGNOSES: 1. Paranoid schizophrenia 2. ETOH use disorder REASON FOR ADMISSION: As per ED report: ":Reason for Referral Pt sent by [facility] ED for MHE, pt with apparent hx of Schizophrenia, has been exhibiting paranoid delusions earlier tonight. Chief Complaint Pt appears anxious, s/w guarded, is A&0x3, transferred from [facility] ED for MHE. PT admittedly called 911 himself last evening, admits he was drinking yesterday as well. Pt repoprts he called 911 after opening a letter at home and feeling like it had a "toxic effect" on him, pt insists there was something wrong with the letter and cause him to feel dizzy and weak, reports the leter was some kind of "medical advertisement". Pt., though guarded, admits to hx of Schizophrenia and has prior admissions in [place], but last admission was in "late 80's or early 90's", pt admits to poor memory recently, also admits to non-compliance with outpt psych tx or medications since he moved to [facility] in 2009, currently resides with his 2 sisters. Pt reports compliance with his PCP and medications, also had colonoscopy recently. Pt denies SI/HI, currently denies any AH/VH, denies drug use, admits to drinking "a few times a month", admits he had "about 10 beers yesterday". Pt remains anxious and guarded with poor eye contact, pressured speech. Per [place] documentation, ED Physician there spoke with pt.'s sister for corroborative info, she examined aforementioned letter that pt had incident with, letter appeared ordinary to her(Medicare notice?) and acknowledged that pt did indeed have prior psych hx a nd agreed that pt appeared to be decompensating. Pt continues to obsess about the letter, feels he was somehow physically affected by letter, appears paranoid, possible tactile/olfactory/gustatory hallucinations". CONSULTANTS INVOLVED: None TREATMENT AND PROGRESS ON THE UNIT : The patient remained isolative to his room and for the first 48-72 hours he ws extremely guarded and paranoid, he was irritable/angry and had disorganized thoughts. He couldn't establish eye contact and kept looking towards the door and the arriaga in the office, he grimaced as if he wa seing or smelling something that was disgusting to him. He had a good response to medications and when he started improving he said that he had stopped taking his medications but he kept minimizing his alcohol abuse problem, saying that he didn't think it played a role in his decompenstion. for the first few days of his hospitalization he said that the letters contained anthrax and he truly believed someone was there that wanted to kill him with the those letters but later on, as he improved, he said that now that his thoughts were more clear, he understood that the letters didn't contain anthrax and in the past, he had those same thoughts but he was able to block them and if he felt like that when he received the mail, he tossed the letters. The patient has experienced previous psychotic breaks,for a long time, since his early adulthood, he says he has had hallucinations and delusions before and he was taking medications before this decompensation. The patient reports h has been on multiple medications but he can't recall all of them. he admitted that he had a drinking problem, although he didn't see it as a problem, even when he had said he would drink at least 10 beers /day. The patient accepted the Invega long acting injectable because he had a good response to the oral formulation and this rfp writer decided to offer him the injection because it would be easier for him in case he forgot to take his medications daily. He received the injection a nd denied medication side effects. His paranoid symptoms improved, he stopped having auditory and visula hallucinations, he was aware he had to f/u with his appointments and was willing to go back to his sister's house where he felt he was supported. HOSPITAL COURSE: As above DISCHARGE ASSESSMENT: The patient was not homicidal, not suicidal ad not psychotic at the time of his discharge. he tolerated his medications and he never developed side effects or adverse effects to them. MENTAL STATUS EXAMINATION ON DISCHARGE: General Appearance: good hygiene and grooming, , does/not appear stated age (looks older), hospital scrubs/clothing Build: average Demeanor: less guarded today Eye Contact: less avoidant, he doesn't look at me, he looks at the wall Activity: slowed, calm Behavior: cooperative, less guarded, less paranoid Speech: clear, slow, low in volume Mood: less irritable Affect: constricted, less anxious Thought Process: linear Thought Content (Delusions): denies SI, HI, AVH. He denies paranoid, grandiose and/or bizarre delusions Thought Content (Other): please, read above Thought Content (Aggressive): none reported Perception (Hallucinations): none reported Perception (Other): none reported Cognition (Impairment of): none reported Cognition(Intelligence Est.): average Oriented: Awake, Alert, Oriented times three Insight: poor Judgment: Poor Psychosis: denies MEDICATIONS ON DISCHARGE: Scheduled Benztropine Mesylate (Benztropine Mesylate) 0.5 Mg Tablet, 0.5 MG PO BID for EXTRAPYRAMIDAL SIDE EFFECTS, #14 Folic Acid (Folic Acid) 1 Mg Tablet, 1 MG PO DAILY for ALCOHOL ABUSE, #7 Lisinopril (Lisinopril) 10 Mg Tablet, 10 MG PO DAILY for HYPERTENSION, #7 Multivitamins (Thera M Plus Tablet) 1 Each Tablet, 1 TAB PO DAILY for NUTR ITIONAL SUPPLEMENT, #7 Nicotine (Nicotine Patch) 21 Mg Patch.td24, 1 PATCH TD DAILY for NICOTINE CRAVINGS, #7 Paliperidone Palmitate (Invega Sustenna) 156 Mg/1 Ml Syringe, 156 MG IM Q30D for PARANOID SCHIZOPHRENIA for 1 Days, #1 FIRST DOSE ON 01/21/19 AND THE NEXT ONE, ONE MONTH LATER. Quetiapine Fumarate (Quetiapine Fumarate) 50 Mg Tablet, 50 MG PO QAM for MOOD/PSYCHOSIS, #7 Quetiapine Fumarate (Quetiapine Fumarate) 50 Mg Tablet, 50 MG PO QHS for MOOD/PSYCHOSIS, #7 PLAN/FOLLOWUP ARRANGEMENTS: Follow Up Care Education Label * Chemical Dependency Appt1 * Additional information [facility] in hours Sunday - Sunday 8-[address] [place] [address] [facility] in hours Sunday -Sunday [phone] [place] [address] Follow Up Care Education Label * Mental Health Appt 1 * Mental Health [facility] * Established With This Provider No * Therapist PRASHANT * Date January 20, 2019 * Time 14:00 * Address of Clinic or Practice [address] [place] [address] * Follow Up Care Education Label * Medical * Medical Follow Up [facility] * Established With This Provider Yes * Therapist MAGDI AQUINO * Date January 21, 2019 * Time 15:50 * Address of Clinic or Practice [address] [place] [address], [place] * The amount of time spent in the coordination of care for this patient was approximately 30 minutes. Vital Signs/I&Os Vital Signs Date Time Temp Pulse Resp B/P (MAP) Pulse Ox O2 Delivery O2 Flow Rate FiO2 01/17/19 08:05 126/73 01/17/19 06:46 96.7 104 18 01/16/19 09:33 Room Air 01/15/19 10:23 97 Medications Scheduled Benztropine Mesylate (Benztropine Mesylate) 0.5 Mg Tablet, 0.5 MG PO BID for EXTRAPYRAMIDAL SIDE EFFECTS, #14 Folic Acid (Folic Acid) 1 Mg Tablet, 1 MG PO DAILY for ALCOHOL ABUSE, #7 Lisinopril (Lisinopril) 10 Mg Tablet, 10 MG PO DAILY for HYPERTENSION, #7 Multivitamins (Thera M Plus Tablet) 1 Each Tablet, 1 TAB PO DAILY for NUTRITIONAL SUPPLEMENT, #7 Nicotine (Nicotine Patch) 21 Mg Patch.td24, 1 PATCH TD DAILY for NICOTINE CRAVINGS, #7 Paliperidone Palmitate (Invega Sustenna) 156 Mg/1 Ml Syringe, 156 MG IM Q30D for PARANOID SCHIZOPHRENIA for 1 Days, #1 FIRST DOSE ON 01/21/19 AND THE NEXT ONE, ONE MONTH LATER. Quetiapine Fumarate (Quetiapine Fumarate) 50 Mg Tablet, 50 MG PO QAM for MOOD/PSYCHOSIS, #7 Quetiapine Fumarate (Quetiapine Fumarate) 50 Mg Tablet, 50 MG PO QHS for MOOD/PS YCHOSIS, #7 Allergies Coded Allergies: Opioids - Morphine Analogues (Verified Adverse Reaction, Intermediate, LIGHTHEADED, 01/11/19) DUONG HANSON MD January 21, 2019 13:47
== END 2019-01-17 14:07 | disposition home or self-care (01) | DRG 750 ==
LOC: M ED 04:15 → M ED INP 06:55 → M PSY 08:37
PROVIDERS: ADMIT Psychiatry & Neurology Psychiatry; ATTEND Psychiatry & Neurology Psychiatry
DX: F20.0 Paranoid schizophrenia (principal); F10.10 Alcohol abuse, uncomplicated; Z88.5 Allergy status to narcotic agent; I10 Essential (primary) hypertension; F17.200 Nicotine dependence, unspecified, uncomplicated; E78.5 Hyperlipidemia, unspecified; M19.90 Unspecified osteoarthritis, unspecified site; Z91.14 Patient's other noncompliance with medication regimen; Z91.19 Patient's noncompliance with other medical treatment and regimen

== ENCOUNTER → 2022-11-08 | Outpatient (CLI) | payer MEDICARE ==
[~2022-11-08] MED LIST: BENZ0.5T23 PO; FOLI1TAB11 PO; INVE156I IM; LISI10TA22 PO; NICO21PAT TD; PROHANCE 279.3MG/ML 5ML VIAL As Ordered ONE; QUET50TA4 PO; VITMTA PO
== END ==
LOC: M RAD 16:14
PROVIDERS: ATTEND Registered Nurse
DX: C20 Malignant neoplasm of rectum (principal)
CPT/HCPCS: 72197; A9576

== ENCOUNTER → 2022-11-14 | Outpatient (CLI) | payer MEDICARE, OTHER ==
[~2022-11-14] MED LIST changes: +ABIL1INJ2; -PROHANCE 279.3MG/ML 5ML VIAL As Ordered ONE; +SIMV10TA21
== END ==
LOC: M ONCR 09:41
PROVIDERS: ATTEND General Practice
DX: C20 Malignant neoplasm of rectum (principal); E78.5 Hyperlipidemia, unspecified; I10 Essential (primary) hypertension; K21.9 Gastro-esophageal reflux disease without esophagitis; Z79.899 Other long term (current) drug therapy; Z87.891 Personal history of nicotine dependence; Z88.5 Allergy status to narcotic agent

== ENCOUNTER → 2022-11-22 | Outpatient (CLI) | payer MEDICARE, OTHER | LOC: M ONCR 10:47 | PROVIDERS: ATTEND General Practice | DX: C20 Malignant neoplasm of rectum (principal) ==

== ENCOUNTER → 2023-08-08 | Outpatient (CLI) | payer OTHER ==
[~2023-08-08] MED LIST changes: +BENZ0.5T2 PO; -BENZ0.5T23 PO
[2023-08-08 12:05] LABS: BASO # 0.1 10^3/uL (0.0-0.2); BASO % 0.8 % (0.0-1.0); EOS # 0.2 10^3/uL (0.0-0.5); EOS % 1.7 % (0.0-3.0); HEMATOCRIT 48.9 % (42.0-52.0); HEMOGLOBIN 16.4 g/dl (13.5-17.5); LYMPH % 23.3 % (24.0-44.0); MEAN CORPUSCULAR HEMOGLOBIN 29.8 pg (27.0-33.0); MEAN CORPUSCULAR HGB CONC 33.5 g/dl (32.0-36.5); MEAN CORPUSCULAR VOLUME 88.9 fl (80.0-96.0); MONO # 0.8 10^3/uL (0.0-0.8); MONO % 8.7 % (2.0-8.0); NEUTROPHILS # 5.6 10^3/uL (1.5-8.5); PLATELET COUNT, AUTOMATED 266 10^3/uL (150-450); WHITE BLOOD COUNT 8.6 10^3/uL (4.0-10.0)
[2023-08-08 12:35] LABS: ALBUMIN 3.7 G/DL (3.2-5.2); ALKALINE PHOSPHATASE 91 U/L (46-116); ALT/SGPT 27 U/L (7.0-40); AST/SGOT 17 U/L (<34); BILIRUBIN,TOTAL 0.4 MG/DL (0.3-1.2); BLOOD UREA NITROGEN 14 MG/DL (9-23); CALCIUM LEVEL 9.2 MG/DL (8.3-10.6); CARBON DIOXIDE LEVEL 28 MMOL/L (20-31); CHLORIDE LEVEL 108 MMOL/L (98-107); CREATININE FOR GFR 1.05 MG/DL (0.70-1.30); GLOMERULAR FILTRATION RATE > 60.0 (>49); GLUCOSE, FASTING 129 MG/DL (74-106); POTASSIUM SERUM 4.2 MMOL/L (3.5-5.1); SODIUM LEVEL 144 MMOL/L (136-145); TOTAL PROTEIN 6.6 G/DL (5.7-8.2)
== END ==
LOC: M ONCR 10:33
PROVIDERS: ATTEND General Practice
DX: C20 Malignant neoplasm of rectum (principal); Z71.2 Person consulting for explanation of examination or test findings; Z79.899 Other long term (current) drug therapy; Z87.891 Personal history of nicotine dependence; Z88.5 Allergy status to narcotic agent
CPT/HCPCS: 36415; 80053; 82378; 85025; G0463

== ENCOUNTER → 2023-08-17 | Outpatient (CLI) | payer OTHER ==
[~2023-08-17] MED LIST changes: +GASTROGRAFIN SOLUTION 30ML As Ordered ONE; +ISOVUE-370 76% 100ML VIAL As Ordered ONE
== END ==
LOC: M RAD 12:47
PROVIDERS: ATTEND General Practice
DX: C20 Malignant neoplasm of rectum (principal); K76.0 Fatty (change of) liver, not elsewhere classified; K44.9 Diaphragmatic hernia without obstruction or gangrene
CPT/HCPCS: 71260; 74177; Q9963; Q9967

== ENCOUNTER → 2023-10-17 | Outpatient (CLI) | payer OTHER ==
[~2023-10-17] MED LIST changes: -GASTROGRAFIN SOLUTION 30ML As Ordered ONE; -ISOVUE-370 76% 100ML VIAL As Ordered ONE
== END ==
LOC: M ONCR 09:59
PROVIDERS: ATTEND General Practice
DX: C20 Malignant neoplasm of rectum (principal); F20.9 Schizophrenia, unspecified; Z71.2 Person consulting for explanation of examination or test findings; Z79.899 Other long term (current) drug therapy; Z87.891 Personal history of nicotine dependence
CPT/HCPCS: 36415; 82378; G0463

== ENCOUNTER → 2024-08-26 | Outpatient (CLI) | payer OTHER ==
[2024-08-26 14:54] LABS: BASO # 0.1 10^3/uL (0.0-0.2); BASO % 0.9 % (0.0-1.0); EOS # 0.1 10^3/uL (0.0-0.5); EOS % 0.6 % (0.0-3.0); HEMATOCRIT 51.1 % (42.0-52.0); HEMOGLOBIN 17.2 g/dl (13.5-17.5); LYMPH # 1.8 10^3/uL (1.5-5.0); MEAN CORPUSCULAR HEMOGLOBIN 29.2 pg (27.0-33.0); MEAN CORPUSCULAR HGB CONC 33.7 g/dl (32.0-36.5); MEAN CORPUSCULAR VOLUME 86.6 fl (80.0-96.0); MONO # 0.7 10^3/uL (0.0-0.8); MONO % 8.2 % (2.0-8.0); NEUTROPHILS # 5.6 10^3/uL (1.5-8.5); NEUTROPHILS % 67.9 % (36.0-66.0); PLATELET COUNT, AUTOMATED 239 10^3/uL (150-450); WHITE BLOOD COUNT 8.2 10^3/uL (4.0-10.0)
[2024-08-26 15:25] LABS: ALBUMIN 3.6 G/DL (3.2-5.2); ALKALINE PHOSPHATASE 93 U/L (40-129); ALT/SGPT 44 U/L (7.0-40); AST/SGOT 52 U/L (<34); BILIRUBIN,TOTAL 0.5 MG/DL (0.3-1.2); BLOOD UREA NITROGEN 13 MG/DL (9-23); CALCIUM LEVEL 9.8 MG/DL (8.3-10.6); CARBON DIOXIDE LEVEL 27 MMOL/L (20-31); CHLORIDE LEVEL 107 MMOL/L (98-107); GLOMERULAR FILTRATION RATE > 60.0 (>42); GLUCOSE, FASTING 133 MG/DL (74-106); POTASSIUM SERUM 4.2 MMOL/L (3.5-5.1); SODIUM LEVEL 143 MMOL/L (136-145); TOTAL PROTEIN 6.8 G/DL (5.7-8.2)
== END ==
LOC: M ONCR 14:03
PROVIDERS: ATTEND General Practice
DX: C20 Malignant neoplasm of rectum (principal); K59.00 Constipation, unspecified; Z87.891 Personal history of nicotine dependence; Z88.5 Allergy status to narcotic agent; Z79.899 Other long term (current) drug therapy
CPT/HCPCS: 36415; 80053; 82378; 85025; G0463